=== PATIENT | female | born 1950 | race Caucasian/White ===

== ENCOUNTER → 2024-06-05 | Emergency (ER) | payer BC, OTHER ==
[~2024-06-05] VITALS: Ht 157.5 cm; Wt 72.6 kg
[~2024-06-05] MED LIST: DEXAMETHASONE SODIUM PHOSPHATE 4 MG/ML VIAL IM STA; DEXAMETHASONE SODIUM PHOSPHATE 4 MG/ML VIAL ONE; LISINOPRIL10 MG PO; METHADONE HCL10 MG PO
== END | disposition left against medical advice (07) ==
LOC: ER 10:42
DX: R09.A2 Foreign body sensation, throat (principal); I10 Essential (primary) hypertension